=== PATIENT | male | born 1960 | race African-American/Black ===

== ENCOUNTER 2018-06-21 05:53 | Inpatient (IN) | payer OTHER ==
[2018-06-20 13:57] LABS: BASOPHILS % 0.5 % (0.0-1.0); EOSINOPHILS # (AUTO) 0.1 (0.0-0.4); EOSINOPHILS % 2.2 % (0.0-6.0); HEMATOCRIT 43.2 % (38.2-49.6); HEMOGLOBIN 13.4 g/dL (14.0-18.0); LYMPHOCYTES # (AUTO) 1.8 (1.0-3.2); LYMPHOCYTES % 29.4 % (18.0-39.1); MEAN CORPUSCULAR HEMOGLOBIN 20.1 pg (28-32); MEAN CORPUSCULAR VOLUME 64.9 fL (81-99); MONOCYTES # (AUTO) 0.4 (0.2-0.8); MONOCYTES % 7.1 % (4.4-11.3); NEUTROPHILS # (AUTO) 3.6 (2.1-6.9); NEUTROPHILS % 60.5 % (38.7-80.0); PLATELET COUNT 242 x10e3/uL (140-360); RED BLOOD COUNT 6.66 x10e6/uL (4.3-5.7)
[2018-06-20 14:12] LABS: ANION GAP 15.1 mmol/L (8-16); BLOOD UREA NITROGEN 16 mg/dL (7-26); BUN/CREATININE RATIO 18 (6-25); CALCIUM 9.1 mg/dL (8.4-10.2); CARBON DIOXIDE 22 mmol/L (22-29); CHLORIDE 106 mmol/L (98-107); EST GLOMERULAR FILTRATION RATE > 60 ML/MIN (60-); GLUCOSE 188 mg/dL (74-118); POTASSIUM 4.1 mmol/L (3.5-5.1); SODIUM 139 mmol/L (136-145)
[~2018-06-21] VITALS: Ht 188 cm; Wt 118.0 kg
[~2018-06-21 05:53] MED LIST: ASA81 MG PO; ATORVASTATIN CA20 MG PO; FLOMAX0.4 MG PO; GABAPENTIN100 MG PO; GLIPIZIDE5 MG PO; METFORMIN HCL500 MG PO; TRAMADOL HCL50 MG PO; VIT D3 PO; Z ALPRAZOLAM PO; Z.0.OMEPRAZOLE20 MG PO; [UNRECOGNIZED DRUG - OTHER] PO
[2018-06-21] MEDS ORDERED: CEFTRIAXONE SOD 1 GM/NS 50 ML 50 ML IV ONE (06:19)
[2018-06-21] MEDS ORDERED: GENTAMICIN 80MG/NS 100 ML 200 ML IV ONE (06:20)
[2018-06-21] MEDS ORDERED: BELLADONNA/OPIUM 30 MG SUPP RC ONE (09:49)
[2018-06-21] MEDS ORDERED: IOPAMIDOL 610MG/1ML 300 MG/ML VIAL IV ONE (09:49)
[2018-06-21] MEDS ORDERED: FENTANYL CITRATE/PF 100MCG/2 ML INJ ONE ×2 (11:44→14:45)
[2018-06-21] MEDS ORDERED: INSULIN REGULAR, HUMAN 100 UNIT/1 ML 3ML VIAL ONE (11:54)
[2018-06-21] MEDS ORDERED: HYDROMORPHONE 2MG/ML 2 MG/ML ML ONE (12:09)
[2018-06-21] MEDS ORDERED: MIDAZOLAM HCL 2 MG/2 ML VIAL ONE (14:45)
[2018-06-21] MEDS ORDERED: PROPOFOL IV EMULSION 10 MG/ML 20 ML VIAL ONE (15:01)
[2018-06-21] MEDS ORDERED: LIDOCAINE HCL 2% LOCAL INJ 5 ML SDV VIAL INJ ONE (15:01)
[2018-06-21] MEDS ORDERED: DEXAMETHASONE SOD PHOS INJ 4 MG/ML VIAL ONE (15:01)
[2018-06-21] MEDS ORDERED: FUROSEMIDE INJ 10 MG/ML 4 ML VIAL ONE (15:01)
[2018-06-21] MEDS ORDERED: SEVOFLURANE INHAL SOLN 250 ML PEN BTL ONE (15:01)
[2018-06-21] MEDS ORDERED: ONDANSETRON HCL INJ 2MG/ML 2ML 2 MG/ML VIAL ONE (15:01)
--- NOTE | 2018-06-21 15:13 | NUR ---
Patient admitted to unit from PACU. Patient is post op TURP. Patient has a rodriguez catheter with CBI infusing. Urine noted to be pink tinged. Lung rao clear to auscultation. Bowel sounds present x4 but hypoactive. No edema noted. Patient ambulated to the bathroom with assistance. Right hand IV in place with IV fluids infusing. No c/o pain at this time.
[2018-06-21 15:44] VITALS: BP 116/78
[2018-06-21] MEDS ORDERED: BELLADONNA/OPIUM 30 MG SUPP RC PRN (15:45)
[2018-06-21 15:49] VITALS: BP 116/78
[2018-06-21 16:10] VITALS: BP 116/78
[2018-06-21] MEDS: METFORMIN HCL 500 MG TAB PO SCH (16:50)
[2018-06-21] MEDS: GLIPIZIDE 5 MG TAB PO SCH (16:50)
[2018-06-21] MEDS: ONDANSETRON HCL INJ 2MG/ML 2ML 2 MG/ML VIAL IV PRN ×2 (17:12→20:37)
--- NOTE | 2018-06-21 19:10 | NUR ---
REPORT TAKEN FROM AM RN.NO PAIN VOICED.AMBULATES .CONTD.BLADDER IRRIGATION IS IN PLACE.PINK COLORED URINE DRAINING.FAMILY MEMBER AT BED SIDE.
[2018-06-21 19:51] VITALS: BP 132/85
[2018-06-21 20:30] VITALS: BP 132/85
[2018-06-21] MEDS: PHENAZOPYRIDINE HCL 100 MG TAB PO SCH (20:48)
[2018-06-21] MEDS: TAMSULOSIN HCL 0.4 MG CAP PO SCH (20:48)
[2018-06-21] MEDS: ATORVASTATIN 40 MG TAB PO SCH (20:48)
[2018-06-21] MEDS: GABAPENTIN 100 MG CAP PO SCH (20:48)
[2018-06-21] MEDS ORDERED: ATORVASTATIN 20 MG TAB PO SCH (21:00)
--- NOTE | 2018-06-21 21:00 | NUR ---
ASSESSMENT DONE.NO RESP.DISTRESS.PINK COLORED URINE DRAINING.BED LOCKED AND IN LOWEST POSITION.PHONE AND CALL LIGHT WITHIN REACH.INSTRUCTED TO CALL FOR ASSISTANCE NEEDED.FAMILY MEMBER AT BED SIDE.
[2018-06-21] MEDS: ACETAMINOPHEN/CODEINE 300MG - 30MG TAB PO PRN (21:51)
--- NOTE | 2018-06-21 22:42 | NUR ---
Ass Addendum: 06/21/18 at 2243 by Ava Wing RN error
[2018-06-22] VITALS (8 sets, daily range): BP systolic 108–129; BP diastolic 64–90
[2018-06-22] MEDS: ACETAMINOPHEN/CODEINE 300MG - 30MG TAB PO PRN (04:26)
[2018-06-22 05:02] LABS: BASOPHILS % 0.1 % (0.0-1.0); EOSINOPHILS % 0.2 % (0.0-6.0); HEMATOCRIT 45.8 % (38.2-49.6); HEMOGLOBIN 14.1 g/dL (14.0-18.0); LYMPHOCYTES # (AUTO) 1.5 (1.0-3.2); LYMPHOCYTES % 14.8 % (18.0-39.1); MEAN CORPUSCULAR HEMOGLOBIN 19.6 pg (28-32); MEAN CORPUSCULAR HGB CONC 30.8 g/dL (31-35); MEAN CORPUSCULAR VOLUME 63.6 fL (81-99); MONOCYTES # (AUTO) 0.9 (0.2-0.8); MONOCYTES % 8.6 % (4.4-11.3); NEUTROPHILS # (AUTO) 7.6 (2.1-6.9); NEUTROPHILS % 75.8 % (38.7-80.0); PLATELET COUNT 232 x10e3/uL (140-360); RED CELL DISTRIBUTION WIDTH 20.5 % (11.7-14.4)
[2018-06-22 05:18] LABS: ANION GAP 16.8 mmol/L (8-16); BLOOD UREA NITROGEN 16 mg/dL (7-26); BUN/CREATININE RATIO 16 (6-25); CALCIUM 8.9 mg/dL (8.4-10.2); CARBON DIOXIDE 25 mmol/L (22-29); CHLORIDE 99 mmol/L (98-107); CREATININE, SERUM 0.99 mg/dL (0.72-1.25); EST GLOMERULAR FILTRATION RATE > 60 ML/MIN (60-); GLUCOSE 163 mg/dL (74-118); POTASSIUM 3.8 mmol/L (3.5-5.1); SODIUM 137 mmol/L (136-145)
--- NOTE | 2018-06-22 06:45 | NUR ---
Ambulated in the [address].pain medication given.report given to the oncoming rn.walking rounds done.stable condition.
--- NOTE | 2018-06-22 07:09 | NUR ---
Rcvd patient in report this am. Patient is asleep in bed at this time. No s/s of distress noted
[2018-06-22 08:04] LABS: ANISOCYTOSIS SLIGHT; RBC MORPHOLOGY COMMENT NORMAL
[2018-06-22 08:05] LABS: PLATELET ESTIMATE ADEQUATE; PLATELET MORPHOLOGY COMMENT NORMAL
[2018-06-22] MEDS: OLMESARTAN 20 MG TAB PO SCH (08:06)
[2018-06-22] MEDS: GLIPIZIDE 5 MG TAB PO SCH ×2 (08:06→17:18)
[2018-06-22] MEDS: PHENAZOPYRIDINE HCL 100 MG TAB PO SCH ×3 (08:06→21:35)
[2018-06-22] MEDS: GABAPENTIN 100 MG CAP PO SCH ×3 (08:06→21:35)
[2018-06-22] MEDS: CEFTRIAXONE SOD 1 GM/NS 50 ML 50 ML IV SCH (08:06)
[2018-06-22] MEDS: AMLODIPINE BESYLATE 5 MG TAB PO SCH (08:06)
[2018-06-22] MEDS: METFORMIN HCL 500 MG TAB PO SCH ×2 (08:06→17:18)
[2018-06-22] MEDS ORDERED: NON-FORMULARY MEDICATION (Amlodipine Bes/Olmesartan Med (Azor 5-20 Mg Tablet) 1 TAB) PO SCH (09:00)
--- NOTE | 2018-06-22 09:30 | NUR ---
Patient is AAOx3. Patient lung rao clear to auscultation. Bowel sounds present x4. Patient is passing gas. No edema noted. Dubois remains in place and CBI infusing. Slight hematuria noted with orange color as well. No c/o pain. Patient ambulates on his own.
--- NOTE | 2018-06-22 15:17 | NUR ---
Nutrition Screen Note RD Recommendation for Physician: -Continue ADA diet as ordered Plan of Care: RD following, monitoring for tolerance and adequacy Nutrition reason for involvement: Nutrition risk trigger MST Primary Diagnose(s): prostatism PMH: No H&P in chart Ht: 74in Wt: 248lb BMI: 31.8kg/m2 IBW: 190lb RD Assessment: (06/22) Chart reviewed. Labs and meds reviewed. 57 yo M, who is admitted for prostatism s/p TURP. POD 1. 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 Pt denied chewing/swallowing problems and nausea/vomiting. Pt complained of some abdominal bloating, which he contributed to gas. No abdominal pain noted. RN recorded 50-100% meal intake. LBM 06/22. Will cont to monitor. Please consult as needed. Current Diet: ADA diet Malnutrition Evaluation (06/22/18) The patient does not meet criteria for a specified degree of malnutrition at this time. Will re-evaluate at follow-up as appropriate. Diet Education Needs Assessment: Diet education not indicated. Nutrition Care Level: low Signed: Margaret Ribera, MS, RD, LD
--- NOTE | 2018-06-22 20:10 | NUR ---
Assessment done.no pain voiced.ambulates .passing gas.cont.bladder irrigation infusing.orange colored urine draining.family member at bed side.keep monitor the pt.bed locked an din lowest position.phone and call light within reach.instructed to call for asistance as needed.
[2018-06-22] MEDS: TAMSULOSIN HCL 0.4 MG CAP PO SCH (21:00)
[2018-06-22] MEDS: ATORVASTATIN 40 MG TAB PO SCH (21:35)
[2018-06-23 00:18] VITALS: BP 122/77
[2018-06-23 04:00] VITALS: BP 127/71
[2018-06-23 05:08] LABS: BASOPHILS % 0.3 % (0.0-1.0); EOSINOPHILS # (AUTO) 0.1 (0.0-0.4); EOSINOPHILS % 1.1 % (0.0-6.0); HEMATOCRIT 43.3 % (38.2-49.6); HEMOGLOBIN 13.9 g/dL (14.0-18.0); LYMPHOCYTES # (AUTO) 1.8 (1.0-3.2); LYMPHOCYTES % 23.6 % (18.0-39.1); MEAN CORPUSCULAR HEMOGLOBIN 20.1 pg (28-32); MEAN CORPUSCULAR HGB CONC 32.1 g/dL (31-35); MEAN CORPUSCULAR VOLUME 62.5 fL (81-99); MONOCYTES # (AUTO) 0.7 (0.2-0.8); MONOCYTES % 9.1 % (4.4-11.3); NEUTROPHILS # (AUTO) 4.9 (2.1-6.9); NEUTROPHILS % 65.4 % (38.7-80.0); PLATELET COUNT 234 x10e3/uL (140-360); RED BLOOD COUNT 6.93 x10e6/uL (4.3-5.7); RED CELL DISTRIBUTION WIDTH 20.3 % (11.7-14.4)
[2018-06-23 05:26] LABS: ANION GAP 15.9 mmol/L (8-16); BLOOD UREA NITROGEN 15 mg/dL (7-26); BUN/CREATININE RATIO 15 (6-25); CALCIUM 8.8 mg/dL (8.4-10.2); CARBON DIOXIDE 25 mmol/L (22-29); CHLORIDE 98 mmol/L (98-107); EST GLOMERULAR FILTRATION RATE > 60 ML/MIN (60-); GLUCOSE 217 mg/dL (74-118); POTASSIUM 3.9 mmol/L (3.5-5.1); SODIUM 135 mmol/L (136-145)
--- NOTE | 2018-06-23 06:50 | NUR ---
REPORT GIVEN TO THE ONCOMING RN.WALKING ROUNDS DONE.STABLE CONDITION.
--- NOTE | 2018-06-23 07:21 | NUR ---
Rounds by urologist and orders in place to d/c rodriguez and complete serial urine, patient in bed during rounds and denies pains, call light within reach, on CBI at the [facility], s/p TURP, some hematuria, will monitor.
[2018-06-23] MEDS: METFORMIN HCL 500 MG TAB PO SCH ×2 (08:00→16:20)
[2018-06-23 08:46] LABS: HOWELL-JOLLY BODIES FEW; PLATELET ESTIMATE ADEQUATE; PLATELET MORPHOLOGY COMMENT FEW LARGE; RBC MORPHOLOGY COMMENT ABNORMAL
[2018-06-23 08:47] LABS: ANISOCYTOSIS SLIGHT; ELLIPTOCYTE, RBC SLIGHT
--- NOTE | 2018-06-23 09:05 | NUR ---
Patient alert and responsive, VSS and does not relate to pain, nausea, no vomiting, Dubois cath removed at this time with some hematuria, Serial urine will start upon first urination as DTV in 4-6 hours. Will monitor.
[2018-06-23] MEDS: GLIPIZIDE 5 MG TAB PO SCH ×2 (09:07→16:20)
[2018-06-23] MEDS: PHENAZOPYRIDINE HCL 100 MG TAB PO SCH ×3 (09:07→20:39)
[2018-06-23] MEDS: AMLODIPINE BESYLATE 5 MG TAB PO SCH (09:07)
[2018-06-23] MEDS: GABAPENTIN 100 MG CAP PO SCH ×3 (09:07→20:39)
[2018-06-23] MEDS: CEFTRIAXONE SOD 1 GM/NS 50 ML 50 ML IV SCH (09:07)
[2018-06-23] MEDS: OLMESARTAN 20 MG TAB PO SCH (09:08)
[2018-06-23 09:39] VITALS: BP 120/70
--- NOTE | 2018-06-23 11:24 | NUR ---
Patient OOB and ambulating, voided post removal of Dubois and noted as hematuria, serial urine started, will monitor.
[2018-06-23 12:17] VITALS: BP 110/69
[2018-06-23 16:50] VITALS: BP 129/79
--- NOTE | 2018-06-23 18:18 | NUR ---
Patient alert and responsive, call to Dr. Livingston and orders for Restoral PRN for insomnia.
[2018-06-23] MEDS ORDERED: TEMAZEPAM 15 MG CAP PO PRN (18:30)
--- NOTE | 2018-06-23 18:44 | NUR ---
Call from Dr. Castellon and orders to start fluids NS @ 125cc/hour
[2018-06-23] MEDS: SODIUM CHLORIDE 0.9% 1000ML 1,000 ML IV SCH (19:05)
--- NOTE | 2018-06-23 19:15 | NUR ---
PATIENT RECEIVED. PATIENT IS RESTING IN BED, AAOX3. RESP EVEN AND UNLABORED. NO ACUTE DISTRESS NOTED. PATIENT DENIES OF ANY PAIN OR DISCOMFORT. FAMILY AT BED SIDE. CALL LIGHT WITHIN REACH. INSTRUCT TO CALL FOR ASSISTANCE. BED LOW/LOCKED. CONTINUE TO MONITOR CLOSELY
[2018-06-23 20:00] VITALS: BP 137/79
[2018-06-23] MEDS: ATORVASTATIN 40 MG TAB PO SCH (20:39)
[2018-06-23] MEDS: TAMSULOSIN HCL 0.4 MG CAP PO SCH (20:39)
[2018-06-24] VITALS (7 sets, daily range): BP systolic 101–137; BP diastolic 59–79
[2018-06-24] MEDS: SODIUM CHLORIDE 0.9% 1000ML 1,000 ML IV SCH ×3 (03:37→18:45)
[2018-06-24] MEDS: PHENAZOPYRIDINE HCL 100 MG TAB PO SCH ×4 (09:18→20:34)
[2018-06-24] MEDS: CEFTRIAXONE SOD 1 GM/NS 50 ML 50 ML IV SCH (09:18)
[2018-06-24] MEDS: GABAPENTIN 100 MG CAP PO SCH ×3 (09:19→20:13)
[2018-06-24] MEDS: OLMESARTAN 20 MG TAB PO SCH (09:19)
[2018-06-24] MEDS: AMLODIPINE BESYLATE 5 MG TAB PO SCH (09:19)
[2018-06-24] MEDS: METFORMIN HCL 500 MG TAB PO SCH ×2 (09:22→17:03)
[2018-06-24] MEDS: GLIPIZIDE 5 MG TAB PO SCH ×2 (09:22→17:03)
--- NOTE | 2018-06-24 13:12 | Progress Note ---
DATE: MEDICINE PROGRESS NOTE SUBJECTIVE: I am covering for Dr. Livingston. Patient is doing well today with no complaints. He still has some bloody hematuria. He underwent a TURP procedure according to the nurse. OBJECTIVE VITAL SIGNS: Temperature is 97.5, pulse 87, respiratory rate is 20, blood pressure 112/78, pulse ox is 96% on room air. GENERAL: Not in acute distress. Alert and oriented x3. Cooperative on examination. HEENT: Head is normocephalic and atraumatic. Eyes: Pupils equal, round and reactive to light bilaterally. Extraocular movements intact bilaterally. Throat with no evidence of any erythema or exudates in the posterior pharynx. Has poor dentition. NECK: Supple. Good range of motion. PULMONARY: Clear to auscultation bilaterally. No wheezing. No rales. No rhonchi. No crackles appreciated. CARDIOVASCULAR: Positive S1 and S2. No murmurs, rubs, or gallops appreciated. ABDOMEN: Soft, nondistended, and nontender to palpation. Bowel sounds present. MUSCULOSKELETAL: Strength is 5/5 throughout. No evidence of any musculoskeletal deficit on examination. No weakness appreciated. NEUROLOGICAL: Cranial nerves II-XII are grossly intact. No evidence of any neurological deficits on exam. SKIN: Intact. Warm to touch. Good cap refill. PSYCHIATRIC: Normal affect and mood. EXTREMITIES: No edema. Good range of motion throughout. MICROBIOLOGY: None. IMAGING STUDIES: None. IMPRESSION 1. Status post cystoscopy with bilateral retrograde pyelograms, status post transurethral resection of prostate procedure due to benign prostatic hypertrophy. 2. Hematuria. PLAN: At this time, patient continues to have bloody urine. Hemoglobin is stable at 13.9. We are going to repeat labs in the morning. Discussed case with urology, recommends patient staying an additional night to monitor for clearance of his urine. At this time, we will continue with same plan of care and monitor closely. Job#: [id number]
--- NOTE | 2018-06-24 17:32 | Operative Report ---
DATE OF PROCEDURE: June 21, 2018 PREOPERATIVE DIAGNOSES 1. Obstructive benign prostatic hypertrophy. 2. Urinary tract infections. POSTOPERATIVE DIAGNOSES 1. Obstructive benign prostatic hypertrophy. 2. Urinary tract infections. OPERATIONS PERFORMED 1. Cystourethroscopy with bilateral ureteral catheterization and retrograde ureteropyelography (separate procedure performed for the urinary tract infections). 2. Interpretation of retrograde ureteropyelography. 3. Supervision of fluoroscopy, no radiologist present. 4. Cystourethroscopy with transurethral resection of the prostate utilizing the PlasmaButton electrode. ANESTHESIA: General. COMPLICATIONS: None. CLINICAL SUMMARY: Maciej Man is a 57-year-old man with a history of urinary retention. He had prior prostate biopsies in 2003, which were negative for cancer. He has a history of urinary tract infections. He elected to proceed with surgery today as planned. He is aware of the risks of bleeding, infection, injury to adjacent structures, need for additional procedures, and elected to proceed. OPERATIVE PROCEDURE IN DETAIL: Informed consent was verified. Maciej Man was properly identified, taken to the operating room, placed on the cystoscopy table in the supine position. Anesthesia was uneventfully begun. The patient was then carefully and gently repositioned in the dorsal lithotomy position with all pressure points well padded. His genitalia were prepared and draped in the usual sterile fashion. A 22.5-[place] cystoscope sheath with the visual obturator in place was atraumatically inserted into the patient's urethra. It was guided down the unremarkable urethra through the normal sphincteric region, through the prostate bed, which was significant for trilobar prostatic hypertrophy with visually obstructing kissing lateral lobes and prominent intravesical median lobe. We entered the patient's bladder where panendoscopy revealed no suspicious mucosal lesions, no tumors, no stones, and no diverticula. Trabeculations were noted and normal ureteral orifices were identified. An 8-[place] catheter was used to cannulate each ureter and retrograde ureteral pyelograms were performed. INTERPRETATION OF RETROGRADE URETEROPYELOGRAPHY: Contrast was instilled in a retrograde fashion bilaterally. There were no tumors, no stones, and no diverticula. Unobstructed drainage was observed bilaterally fluoroscopically. Mild ureteral tortuosity was noted around the iliac vessels. We atraumatically inserted the resectoscope sheath and utilized the PlasmaButton electrode. We first vaporized the median lobe with taking care to avoid injuring the ureteral orifices. Once the median lobe was completely eliminated, we worked on both lateral lobes, found the bladder neck too, but never passed the verumontanum and down the surgical capsule. Pinpoint electrocautery was utilized to achieve hemostasis. Debris was evacuated. Perfect hemostasis was verified yet again. The resectoscope was withdrawn. A continuous flow irrigation Dubois was placed. A belladonna and opium suppository was placed revealing a large prostate over 40 grams in size, smooth, non-fluctuant without any nodules. The patient was then uneventfully reversed from anesthesia and taken to recovery room in stable condition. There were no complications during the procedure. The patient tolerated the procedure well. Explicit postop instructions were given and we will follow the patient up on a long-term basis. Job#: [id number] TONE
--- NOTE | 2018-06-24 20:00 | NUR ---
Received change of shift report from AM nurse. Walking rounds completed.
[2018-06-24] MEDS: PANTOPRAZOLE SOD 40 MG TABEC PO SCH (20:01)
[2018-06-24] MEDS: TAMSULOSIN HCL 0.4 MG CAP PO SCH (20:13)
[2018-06-24] MEDS: ATORVASTATIN 40 MG TAB PO SCH (20:13)
--- NOTE | 2018-06-24 23:00 | NUR ---
Patient up walking in halls with no difficulty noted. Refused IV and serial urine states 'I am going home". Patient also refused puridium. continue monitor for changes in patient condition.
[2018-06-25] VITALS: BP 136/76
[2018-06-25] MEDS: SODIUM CHLORIDE 0.9% 1000ML 1,000 ML IV SCH ×2 (02:45→09:23)
[2018-06-25 04:00] VITALS: BP 117/79
--- NOTE | 2018-06-25 05:00 | NUR ---
Patient up in shower taking a bath. No noted difficulty noted.
[2018-06-25 06:07] LABS: BASOPHILS % 0.5 % (0.0-1.0); EOSINOPHILS # (AUTO) 0.2 (0.0-0.4); EOSINOPHILS % 2.5 % (0.0-6.0); HEMOGLOBIN 12.3 g/dL (14.0-18.0); LYMPHOCYTES # (AUTO) 2.2 (1.0-3.2); LYMPHOCYTES % 34.6 % (18.0-39.1); MEAN CORPUSCULAR HEMOGLOBIN 20.6 pg (28-32); MEAN CORPUSCULAR HGB CONC 33.2 g/dL (31-35); MEAN CORPUSCULAR VOLUME 62.1 fL (81-99); MONOCYTES # (AUTO) 0.5 (0.2-0.8); MONOCYTES % 7.9 % (4.4-11.3); NEUTROPHILS # (AUTO) 3.4 (2.1-6.9); NEUTROPHILS % 54.2 % (38.7-80.0); PLATELET COUNT 205 x10e3/uL (140-360); RED BLOOD COUNT 5.96 x10e6/uL (4.3-5.7); RED CELL DISTRIBUTION WIDTH 19.9 % (11.7-14.4)
[2018-06-25 06:29] LABS: ANION GAP 15.3 mmol/L (8-16); BLOOD UREA NITROGEN 16 mg/dL (7-26); BUN/CREATININE RATIO 19 (6-25); CALCIUM 8.9 mg/dL (8.4-10.2); CARBON DIOXIDE 24 mmol/L (22-29); CHLORIDE 105 mmol/L (98-107); CREATININE, SERUM 0.86 mg/dL (0.72-1.25); EST GLOMERULAR FILTRATION RATE > 60 ML/MIN (60-); GLUCOSE 178 mg/dL (74-118); POTASSIUM 4.3 mmol/L (3.5-5.1); SODIUM 140 mmol/L (136-145)
--- NOTE | 2018-06-25 07:02 | NUR ---
Received patient mid fowlers position, side rails upx2, call light within reach. AAOx4 to time, person, place, situation. Respirations even and unlabored. Denies any pain. Instructed patient to use call light for assistance. Voiced understanding.
[2018-06-25 08:00] VITALS: BP 131/81
[2018-06-25 08:35] VITALS: BP 131/81
[2018-06-25] MEDS: METFORMIN HCL 500 MG TAB PO SCH (08:52)
[2018-06-25] MEDS: CEFTRIAXONE SOD 1 GM/NS 50 ML 50 ML IV SCH (08:52)
[2018-06-25] MEDS: GLIPIZIDE 5 MG TAB PO SCH (08:52)
[2018-06-25] MEDS: GABAPENTIN 100 MG CAP PO SCH (08:53)
[2018-06-25] MEDS: OLMESARTAN 20 MG TAB PO SCH (08:53)
[2018-06-25] MEDS: AMLODIPINE BESYLATE 5 MG TAB PO SCH (08:53)
[2018-06-25] MEDS: PANTOPRAZOLE SOD 40 MG TABEC PO SCH (08:53)
[2018-06-25] MEDS: PHENAZOPYRIDINE HCL 100 MG TAB PO SCH (09:00)
[2018-06-25] MEDS ORDERED: TYLENOL WITH C1 EACH PO (11:35)
[2018-06-25] MEDS ORDERED: COLACE100 MG PO (11:35)
[2018-06-25] MEDS ORDERED: CIPRO500 MG PO (11:36)
--- NOTE | 2018-06-25 11:54 | Discharge Summary ---
FINAL DISCHARGE DIAGNOSES 1. Status post cystourethrogram with bilateral ureteral catheterization and retrograde ureteropyelography with transurethral resection of the prostate. 2. Hematuria, resolved. 3. Benign prostatic hypertrophy. CONSULTANTS: Urology. VITAL SIGNS: Temperature is 98.1, pulse 76, respiratory rate is 20, blood pressure 131/81, pulse ox is 95% on room air. LAB FINDINGS: Showed white count 6.3, hemoglobin 12.3, hematocrit 37, platelets of 205. Chemistry; sodium 140, potassium 4.3, chloride 105, bicarb 23, anion gap of 15, BUN 16, creatinine 0.86, glucose is 178, calcium is 8.9. MICROBIOLOGY: None. IMAGING STUDIES: None. HOSPITAL COURSE: This is a 57-year-old male with known BPH who comes in for an elective procedure that was arranged by urology. Patient underwent a cystourethroscopy with bilateral ureteral catheterization and retrograde ureteropyelography with cystourethroscopy with transurethral resection of the prostate utilizing plasma, blood, and electrode. Patient had a TURP performed on June 21, 2018 by urology. Patient stayed here for several days due to the fact that he had hematuria. His urine eventually cleared up to normal with no more hematuria seen. The patient did well postprocedurally with no complaints. The patient will be discharged on pain control as well as Colace and Cipro. Patient was cleared by urology for discharge home. On discharge, vital signs stable, labs remained stable. Patient was seen, evaluated, and examined thoroughly on the day of discharge with no other complaints. Patient verbalized understanding and agreed with plan of care to follow up as an outpatient with the primary care physician in 1 week and urologist in 2 weeks time. MEDICATIONS: See med-reconciliation form. DISPOSITION: Home. CONDITION: Stable. DIET: Heart-healthy. In the event of any worsening symptoms, the patient was advised to come back to the ED for further evaluation. Discharge summary took greater than 35 minutes. ANDRY DAMICO MD Job#: [id number] CELSA
--- NOTE | 2018-06-25 13:01 | NUR ---
Right hand IV discontinued. No signs of infiltration noted. 2x2 gauze and tape placed. Taken by PCT via wheelchair to personal car. AAOX4 to time, person,place, situation. Respirations even and unlabored. All personal belongings, rx, and discharge instructions taken with patient
== END 2018-06-25 13:01 | disposition home or self-care (01) | DRG 714 ==
LOC: OR 05:53 → PACU V 14:42 → MED/SURG 15:15
PROVIDERS: ADMIT Internal Medicine; ATTEND Internal Medicine
PROC: BT141ZZ Fluoroscopy of Kidneys, Ureters and Bladder using Low Osmolar Contrast (ICD-10-PCS; 2018-06-21)
PROC: 0T788ZZ Dilation of Bilateral Ureters, Via Natural or Artificial Opening Endoscopic (ICD-10-PCS; principal; 2018-06-21 08:30)
PROC: 0VT08ZZ Resection of Prostate, Via Natural or Artificial Opening Endoscopic (ICD-10-PCS; 2018-06-21 08:30)
DX: N40.1 Benign prostatic hyperplasia with lower urinary tract symptoms (principal); R31.9 Hematuria, unspecified; E78.5 Hyperlipidemia, unspecified; K21.9 Gastro-esophageal reflux disease without esophagitis; N39.41 Urge incontinence; Z87.440 Personal history of urinary (tract) infections; N39.498 Other specified urinary incontinence; R33.8 Other retention of urine; I10 Essential (primary) hypertension; E11.40 Type 2 diabetes mellitus with diabetic neuropathy, unspecified
CPT/HCPCS: 36415; 74420; 80048; 82948; 85025; 93005; J0696; J1100; J1580; J1940; J2001; J2250; J2405; J7030

== ENCOUNTER 2020-04-01 18:42 | Observation (INO) | payer OTHER ==
[~2020-04-01] VITALS: Ht 188 cm; Wt 116.1 kg
[~2020-04-01 18:42] MED LIST changes: +CIPRO500 MG PO; +COLACE100 MG PO; +TYLENOL WITH C1 EACH PO
[2020-04-01] MEDS ORDERED: ASPIRIN 81 MG CHEW TAB PO NR (20:00)
[2020-04-01] MEDS: NITROGLYCERIN 2% OINT 1 GM PKT TOP SCH (20:33)
[2020-04-01] MEDS ORDERED: ASPIRIN 81 MG CHEW TAB ONE (20:35)
[2020-04-01] MEDS ORDERED: NITROGLYCERIN 2% OINT 1 GM PKT ONE (20:35)
[2020-04-01] MEDS ORDERED: ONDANSETRON HCL INJ 2MG/ML 2ML 2 MG/ML VIAL IV PRN (21:30)
[2020-04-01] MEDS ORDERED: SODIUM CHLORIDE FLUSH 10 ML SYR INJ PRN (21:30)
[2020-04-01] MEDS ORDERED: ASPIRIN 81 MG CHEW TAB PO ONE (21:30)
[2020-04-01 23:40] VITALS: BP 140/90
[2020-04-02] MEDS ORDERED: ASPIRIN CHEW81 MG PO (02:57)
[2020-04-02] MEDS ORDERED: PIOGLITAZONE30 MG PO (02:57)
[2020-04-02] MEDS ORDERED: LOTREL 10-20 M1 EACH PO (02:57)
[2020-04-02 03:09] LABS: CREATINE KINASE MB 4.8 ng/mL (0-5.0)
[2020-04-02 04:00] VITALS: BP 132/88
[2020-04-02 04:59] LABS: BASOPHILS % 0.6 % (0.0-1.0); EOSINOPHILS # (AUTO) 0.2 (0.0-0.4); EOSINOPHILS % 3.8 % (0.0-6.0); HEMATOCRIT 40.3 % (38.2-49.6); HEMOGLOBIN 12.4 g/dL (14.0-18.0); LYMPHOCYTES # (AUTO) 1.9 (1.0-3.2); LYMPHOCYTES % 36.6 % (18.0-39.1); MEAN CORPUSCULAR HEMOGLOBIN 19.7 pg (28-32); MEAN CORPUSCULAR HGB CONC 30.8 g/dL (31-35); MEAN CORPUSCULAR VOLUME 64.2 fL (81-99); MONOCYTES # (AUTO) 0.5 (0.2-0.8); NEUTROPHILS # (AUTO) 2.6 (2.1-6.9); NEUTROPHILS % 49.6 % (38.7-80.0); PLATELET COUNT 246 x10e3/uL (140-360); RED BLOOD COUNT 6.28 x10e6/uL (4.3-5.7); RED CELL DISTRIBUTION WIDTH 20.2 % (11.7-14.4)
[2020-04-02 05:17] LABS: ANION GAP 9.8 mmol/L (8-16); BLOOD UREA NITROGEN 18 mg/dL (7-26); BUN/CREATININE RATIO 23 (6-25); CALCIUM 8.7 mg/dL (8.4-10.2); CARBON DIOXIDE 27 mmol/L (22-29); CHLORIDE 107 mmol/L (98-107); CHOLESTEROL 119 MD/DL (0-199); CREATININE, SERUM 0.79 mg/dL (0.72-1.25); EST GLOMERULAR FILTRATION RATE > 60 ML/MIN (60-); GLUCOSE 125 mg/dL (74-118); HDL CHOLESTEROL 40 MG/DL (40-60); LDL CHOLESTEROL 64 MG/DL (60-130); POTASSIUM 3.8 mmol/L (3.5-5.1); SODIUM 140 mmol/L (136-145); TRIGLYCERIDES 73 MG/DL (0-149)
[2020-04-02] MEDS: NITROGLYCERIN 2% OINT 1 GM PKT TOP SCH (05:43)
[2020-04-02 07:53] VITALS: BP 132/88
[2020-04-02 08:15] VITALS: BP 132/88
[2020-04-02] MEDS ORDERED: ASPIRIN 81 MG CHEW TAB PO SCH (09:00)
[2020-04-02] MEDS ORDERED: DEXTROSE 50% SYRINGE 50 ML IV PRN (09:00)
[2020-04-02] MEDS ORDERED: ACETAMINOPHEN 325 MG TAB PO PRN (09:00)
[2020-04-02] MEDS: GLIPIZIDE 5 MG TAB PO SCH ×2 (10:21→17:00)
[2020-04-02] MEDS: GABAPENTIN 100 MG CAP PO SCH ×2 (10:22→17:37)
[2020-04-02] MEDS ORDERED: AMLODIPINE BESYLATE 10 MG TAB PO SCH (10:30)
[2020-04-02] MEDS ORDERED: BENAZEPRIL HCL 10 MG TAB PO SCH (10:30)
[2020-04-02] MEDS ORDERED: MECLIZINE HCL 12.5 MG TAB PO ONE (10:45)
[2020-04-02 11:15] VITALS: BP 117/85
[2020-04-02] MEDS: INSULIN REGULAR, HUMAN 100 UNIT/1 ML 3ML VIAL SQ SCH ×2 (11:30→16:30)
[2020-04-02] MEDS ORDERED: CLOPIDOGREL BISULFATE 75 MG TAB PO ONE (12:45)
[2020-04-02] MEDS ORDERED: SODIUM CHLORIDE 0.9% 1000ML 1,000 ML SCH (12:45)
[2020-04-02 12:52] LABS: CREATINE KINASE MB 4.4 ng/mL (0-5.0)
[2020-04-02] MEDS ORDERED: LIDOCAINE HCL 2% LOCAL 20 ML VIAL ONE (14:43)
[2020-04-02] MEDS ORDERED: IOPAMIDOL 370 MG/ML 200 ML INFUS..BTL INJ ONE (14:44)
[2020-04-02] MEDS ORDERED: HEPARIN SOD/SOD CHLORIDE 2,000 ML ONE (14:44)
[2020-04-02] MEDS ORDERED: MIDAZOLAM HCL 2 MG/2 ML VIAL ONE ×2 (14:46→15:13)
[2020-04-02] MEDS ORDERED: SODIUM CHLORIDE 0.9% 1000ML 1,000 ML ONE (14:46)
[2020-04-02] MEDS ORDERED: FENTANYL CITRATE/PF 100MCG/2 ML INJ ONE (14:46)
[2020-04-02] MEDS ORDERED: SODIUM CHLORIDE 0.9% 1000ML 500 ML IV SCH (15:45)
[2020-04-02] MEDS ORDERED: SODIUM CHLORIDE 0.9% 1000ML 500 ML IV ONE (16:00)
[2020-04-02 16:02] VITALS: BP 123/84
[2020-04-02] MEDS ORDERED: MECLIZINE HCL12.5 MG PO (18:34)
[2020-04-02] MEDS ORDERED: ATORVASTATIN 40 MG TAB PO SCH (21:00)
[2020-04-03] MEDS ORDERED: CLOPIDOGREL BISULFATE 75 MG TAB PO SCH (09:00)
== END 2020-04-02 19:15 | disposition home or self-care (01) ==
LOC: FSED 19:00 → ERHOLD 21:19 → MED/SURG 23:40
PROVIDERS: ADMIT Internal Medicine; ATTEND Internal Medicine
DX: R07.9 Chest pain, unspecified (principal); R42 Dizziness and giddiness; E11.9 Type 2 diabetes mellitus without complications; E11.42 Type 2 diabetes mellitus with diabetic polyneuropathy; E78.5 Hyperlipidemia, unspecified; I25.10 Atherosclerotic heart disease of native coronary artery without angina pectoris; Z79.84 Long term (current) use of oral hypoglycemic drugs; Z20.828 Contact with and (suspected) exposure to other viral communicable diseases
CPT/HCPCS: 36415; 70450; 71046; 80048 ×2; 80061; 80076; 81003; 82550; 82553 ×2; 82948; 83036; 83880; 84443; 84484 ×2; 85025 ×2; 93005; 93458; 99284; C1766; C1769; G0378 ×2; J2001; J2250; J2405; J3010; J7030; J8597; Q9967; U0002; 99152; 99153

== ENCOUNTER 2020-04-14 14:25 | Emergency (ER) | payer OTHER ==
[~2020-04-14] VITALS: Ht 188 cm; Wt 116.1 kg
[~2020-04-14 14:25] MED LIST changes: +ASPIRIN CHEW81 MG PO; +LOTREL 10-20 M1 EACH PO; +MECLIZINE HCL12.5 MG PO; +PIOGLITAZONE30 MG PO
--- NOTE | 2020-04-14 15:30 | Emergency Department Note ---
History of Present Illnes History of Present Illness Chief Complaint: Chest Pain History of Present Illness This is a 59 year old male Chief Complaint Comment PT STATED HE STARTED HAVING CHEST PAINS LAST NIGHT WITH SOME SOB, PT STATED PAIN COMES AND GOES, PT WAS ADMITTED LAST WEEK TO [facility] WHERE HE WENT EXTENSIVE CARDIAC TESTING INCLUDING A CARDIAC CATH. PT STATED ALL WAS NEGATIVE. NO DISTRESS NOTED IN TRIAGE, VITAL SIGNS STABLE. . Historian: Patient, Family Member Arrival Mode: Car Winding Department Supervisor Required: No Onset (how long ago): day(s) (1) Location: CHEST LEFT Quality: DULL Radiation: Denies non-radiation, Denies back, Denies neck, Denies extremity, Denies abdomen, Denies periumbilical, Denies flank, Denies proximal, Denies distal, Denies other Severity: moderate Onset quality: gradual Duration (how long): day(s) (1) Timing of current episode: intermittent Progression: waxing and waning Chronicity: new Context: Denies recent illness, Denies recent surgery, Denies recent immobilization, Denies recent travel, Denies trauma/injury, Denies new medications, Denies hx of DVT/PE, Denies non-compliance w/ medications, Denies other Relieving factors: none Exacerbating factors: none Associated symptoms: Denies denies other symptoms, Denies confusion, Denies chest pain, Denies cough, Denies diaphoresis, Denies fever/chills, Denies headaches, Denies loss of appetite, Denies malaise, Denies nausea/vomiting, Denies rash, Denies seizure, Denies shortness of breath, Denies syncope, Denies weakness, Denies other Treatments prior to arrival: none Past Medical/Family History Physician Review I have reviewed the patient's past medical and family history. Any updates have been documented here. Past Medical History Recent Fever: No Clinical Suspicion of Infectio: No New/Unexplained Change in Ment: No Past Medical History: Hypertension, Diabetes, CAD, Hyperlipedemia Other Medical History: BPH VERTIGO Past Surgical History: Cholecysctectomy, Appendectomy, Hernia Repair Other Surgery: LEFT ROTATOR CUFF SURG PROSTATE Social History Smoking Cessation: Never Smoker Counseling Performed: No Alcohol Use: Occasional Any Illegal Drug Use: No Other Any Pre-Existing Lines (PICC,: No Review of Systems Review of Systems Constitutional: Reports no symptoms EENTM: Reports no symptoms Cardiovascular: Reports as per HPI, Reports chest pain Respiratory: Reports no symptoms Gastrointestinal: Reports no symptoms Genitourinary: Reports no symptoms Musculoskeletal: Reports no symptoms Integumentary: Reports no symptoms Neurological: Reports no symptoms Psychological: Reports no symptoms Endocrine: Reports no symptoms Hematological/Lymphatic: Reports no symptoms Physical Exam Related Data Allergies: Coded Allergies: No Known Allergies (Unverified , 10/04/11) Triage Vital Signs Vital Signs Date Time Temp Pulse Resp B/P (MAP) Pulse Ox O2 Delivery O2 Flow Rate FiO2 04/14/20 14:30 98.9 98 17 127/91 100 Room Air Vital signs reviewed: Yes Physical Exam CONSTITUTIONAL Constitutional: Present well-developed, Present well-nourished HENT HENT: Present normocephalic, Present atraumatic, Present oropharynx clear/moist, Present nose normal HENT L/R: Present left ext ear normal, Present right ext ear normal; Absent left TM normal, Absent right TM normal, Absent left canal normal, Absent right canal normal, Absent left impacted cerumen, Absent right impacted cerumen, Absent left bulging TM, Absent right bulging TM, Absent other EYES Eyes: Reports PERRL, Reports conjunctivae normal; Denies EOM normal, Denies lids normal, Denies left eye discharge, Denies right eye discharge, Denies scleral icterus, Denies other NECK Neck: Present ROM normal; Absent supple, Absent thyromegaly, Absent tracheal deviation, Absent stridor, Absent JVD, Absent cervical adenopathy, Absent carotid bruit, Absent other PULMONARY Pulmonary: Present effort normal, Present breath sounds normal; Absent respiratory distress, Absent rales, Absent rhonchi, Absent chest tenderness, Absent other CARDIOVASCULAR Cardiovascular: Present regular rhythm, Present heart sounds normal, Present capillary refill normal, Present normal rate; Absent irregular rhythm, Absent intact distal pulses, Absent tachycardia, Absent bradycardia, Absent murmur, Absent gallop, Absent friction rub, Absent palpable pulses, Absent strong pulses, Absent weak pulses, Absent LLE edema, Absent RLE edema, Absent other GASTROINTESTINAL Abdominal: Present soft, Present nontender, Present bowel sounds normal; Absent distension, Absent tender, Absent guarding, Absent mass, Absent rebound, Absent hernia, Absent left CVA tenderness, Absent right CVA tenderness, Absent other GENITOURINARY Genitourinary: Present exam deferred SKIN Skin: Present warm, Present dry; Absent erythema, Absent pale, Absent rash, Absent jaundiced, Absent bruising, Absent lesion, Absent other MUSCULOSKELETAL Musculoskeletal: Present ROM normal NEUROLOGICAL Neurological: Present alert, Present oriented x 3, Present no gross motor or sensory deficits PSYCHOLOGICAL Psychological: Present mood/affect normal, Present judgement normal Results Laboratory Lab results reviewed: Yes Procedures 12 Lead ECG Interpretation ECG Interpretation : Date: Apr 14, 2020 Time: 14:34 Rhythm: sinus rhythm Rate: normal BPM: 98 QRS axis: normal ST segments normal: Yes T waves normal: Yes Clinical Impression: normal ECG Assessment & Plan Medical Decision Making [facility] Assessment & Plan Final Impression: (1) Chest pain (2) Dizziness Depart Disposition: HOME, SELF-CARE Last Vital Signs Date Time Temp Pulse Resp B/P (MAP) Pulse Ox O2 Delivery O2 Flow Rate FiO2 04/14/20 14:30 98.9 98 17 127/91 100 Room Air Home Meds Active Scripts Ondansetron Hcl* (ZOFRAN*) 4 Mg Tablet, 4 MG PO TID, #20 Prov:ALEX STONE MD 04/14/20 Reported Medications Meclizine Hcl (MECLIZINE HCL) 12.5 Mg Tablet, 25 MG PO Q8H PRN for DIZZINESS, TAB 04/02/20 Amlodipine Besylate/Benazepril (LOTREL 10-20 MG CAPSULE) 1 Each Capsule, 1 TAB PO DAILY 04/02/20 Aspirin (ASPIRIN CHEW) 81 Mg Chew, 81 MG PO DAILY, #30 TAB 04/02/20 Pioglitazone Hcl (PIOGLITAZONE) 30 Mg Tablet, MG PO DAILY 04/02/20 Glipizide (GLIPIZIDE) 5 Mg Tablet, 10 MG PO BID, TAB 06/20/18 Gabapentin (GABAPENTIN) 100 Mg Capsule, 100 MG PO TID 06/20/18 [Vit D3] No Conflict Check, 1 TAB PO PER PT 1 TABLET WEEKLY ON Mondays06/20/18 Metformin Hcl (METFORMIN HCL) 500 Mg Tablet, 1000 MG PO BID, #60 TAB 06/20/18 Atorvastatin Calcium (ATORVASTATIN CALCIUM) 20 Mg Tablet, 40 MG PO HS, #30 TAB 06/20/18 ALEX STONE MD Apr 14, 2020 15:30
[2020-04-14] MEDS ORDERED: ZOFRAN4 MG PO (15:31)
[2020-04-14 15:33] VITALS: BP 142/92
--- OUTSIDE RECORDS SUMMARY | 2020-04-14 15:34 | XMS REPORT | Continuity of Care Document ---
Author Author [facility] t Organization [facility] Address [address] [place] [address] Phone Unavailable Care Team Providers Care Teacher Adult Education Name Role Phone MD DOC AMIR PCP Bucky MORATAYA Attphys Unavailable Bucky MORATAYA Admphys Unavailable Payers Payer Name Policy Type Policy Number Effective Date Expiration Date Bucky isaacs Inocencia [id number] 2019 00:00:00 [facility] Problems Condition Name Condition Details Condition Category Status Onset Date Resolution Date Last Treatment Date Treating Clinician Comments Source Chest pain Problem Active [facility] Dizziness Problem Active [facility] Diabetes mellitus Problem Active [facility] Hyperlipidemia Problem Active [facility] Allergies, Adverse Reactions, Alerts Allergy Name Allergy Type Status Severity Reaction(s) Onset Date Inacti ve Date Treating Clinician Comments Source No Known Allergies DA Active U 2019-03-26 00:00:00 [facility] Social History Social Habit Start Date Stop Date Quantity Comments Source Sex Assigned At 1960 00:00:00 1960 00:00:00 Male [facility] Medications Ordered Medication Name Filled Medication Name Start Date Stop Da te Current Medication? Ordering Clinician Indication Dosage Frequency Signature (SIG) Comments Components Source Amlodipine Besylate/Benazepril (Lotrel 10-20 Mg Capsul e) 1 Each CAPSULE Amlodipine Besylate/Benazepril (Lotrel 10-20 Mg Capsule) 1 Each CAPSULE Yes 1 Daily [facility] Aspirin (Aspirin Chew) 81 Mg CHEW Aspirin (Aspirin Chew) 81 Mg CHEW Yes 81 Daily [facility] Atorvastatin Calcium Atorvastatin Calcium Yes 40 Bedtime [facility] Gabapentin Gabapentin Yes 100 Three Times A Day [facility] Glipizide Glipizide Yes 10 Twice A Day [facility] Meclizine Hcl Meclizine Hcl Yes 25 Every 8 Hours as needed for Dizziness [facility] Metformin Hcl Metformin Hcl Yes 1000 Twice A Day [facility] Pioglitazone Hcl (Pioglitazone) 30 Mg TABLET Pioglitaz one Hcl (Pioglitazone) 30 Mg TABLET Yes Daily [facility] Vit D3 Vit D3 Yes 1 [facility] Acetaminophen With Codeine (Tylenol With Codeine #3 Ta blet) 1 Each TABLET Acetaminophen With Codeine (Tylenol With Codeine #3 Tablet) 1 Each TABLET 2020-04-02 00:00:00 No 300 Every 6 Hours as nee ded for Pain [facility] Docusate Sodium (Colace) 100 Mg CAP Docusate Sodium (Colace) 100 Mg CAP 2020-04-02 00:00:00 No 100 Daily [facility] Tamsulosin Hcl (Flomax*) 0.4 Mg CAP Tamsulosin Hcl (Flomax*) 0.4 Mg CAP 2020-04-02 00:00:00 No .4 Daily [facility] Amlodipine Bes/Olmesartan Med (Jazmyne 5-20 Mg Tablet) 1 Each TABLET Amlodipine Bes/Olmesartan Med (Jazmyne 5-20 Mg Tablet) 1 Each TABLET 2020-03-23 0 00:00:00 No 1 Daily [facility] Ciprofloxacin Hcl (Cipro) 500 Mg TABLET Ciprofloxacin Hcl (C ipro) 500 Mg TABLET 2020-04-01 00:00:00 No 500 Every 12 Hours [facility] Aspirin (Asa) 81 Mg TAB Aspirin (Asa) 81 Mg TAB 2018-06-23 00:00 :00 No 81 Daily [facility] Alprazolam Alprazolam 2018-06-20 00:00:00 No 1 Qhs [facility] Omeprazole Omeprazole 2018-06-20 00:00:00 No 1 Katelynn ly [facility] Tramadol Hcl Tramadol Hcl 2018-06-20 00:00:00 No 1 As Needed [facility] Vital Signs Vital Name Observation Time Observation Value Comments Source Body Temperature 2020-04-02 16:02:00 97.8 [degF] [facility] Heart Rate 2020-04-02 16:02:00 73 /min [facility] Respiratory rate 2020-04-02 16:02:00 20 /min [facility] BP Systolic 2020-04-02 16:02:00 123 mm[Hg] [facility] BP Diastolic 2020-04-02 16:02:00 84 mm[Hg] [facility] Oxygen saturation by Pulse oximetry 2020-04-02 16:02:00 97 /min [facility] Weight 2020-04-01 23:40:00 256.04 [lb_av] [facility] BMI (Body Mass Index) 2020-04-01 23:40:00 32.9 kg/m2 [facility] Procedures This patient has no known procedures. Plan of Care Planned Activity Planned Date Details Comments Source Instructions Chest Pain - Noncardiac [facility] Encounters Start Date/Time End Date/Time Encounter Type Admission Type Attendi [facility] Facility Care Department Encounter ID Source 2018-06-21 14:42:00 2018-06-25 13:01:[address] [facility] [id number] [facility] Results Test Description Test Time Test Comments Results Result Comments Source Serum or plasma creatine kinase measurement (enzymatic activity/volume) 2020-04-02 11:55:00 Test Item Creatine Kinase (test code = 2157-6) 513 [IU]/L 30-200 [facility] creatine kinase MB measurement (mass/volume)2020-04-02 11:55:00* Test Item Value Reference Range Interpretation Comments Creatine Kinase MB (test code = 70669-5) 4.40 ng/mL 0-5.0 [facility] measurement by highly sensitive enzyme [id number] 11:55:00* Test Item Value Reference Range Interpretation Comments Troponin I (test code = 61049-1) 0.008 ng/mL 0-0.300 [facility] thyrotropin measurement by detection limit <= 0.005 miu/l (units/volume)2020-04-02 11:55:00* Test Item Value Reference Range Interpretation Comments Thyroid Stimulating Hormone (TSH) (test code = 45242-6) 1.255 0.350-4.940 [facility] leukocytes automated count (number/volume)2020-04-02 04:35:00* Test Item Value Reference Range Interpretation Comments White Blood Count (test code = 6690-2) 5.25 10*3/uL 4.8-10.8 [facility] erythrocytes automated count (number/volume)2020-04-02 04:35:00* Test Item Value Reference Range Interpretation Comments Red Blood Count (test code = 789-8) 6.28 10*6/mL 4.3-5.7 [facility] hemoglobin measurement (moles/volume)2020-04-02 04:35:00* Test Item Value Reference Range Interpretation Comments Hemoglobin (test code = 53213-5) 12.4 g/dL 14.0-18.0 [facility] blood hematocrit (volume fraction)2020-04-02 04:35:00* Test Item Value Reference Range Interpretation Comments Hematocrit (test code = 4544-3) 40.3 % 38.2-49.6 [facility] erythrocyte mean corpuscular [id number] 04:35:00* Test Item Value Reference Range Interpretation Comments Mean Corpuscular Volume (test code = 787-2) 64.2 81-99 [facility] erythrocyte mean corpuscular hemoglobin (mass per erythrocyte)2020-04-02 04:35:00* Test Item Value Reference Range Interpretation Comments Mean Corpuscular Hemoglobin (test code = 785-6) 19.7 pg 28-32 [facility] erythrocyte mean corpuscular hemoglobin concentration measurement (mass/volume)2020-04-02 04:35:00* Test Item Value Reference Range Interpretation Comments Mean Corpuscular Hemoglobin Concent (test code = 786-4) 30.8 g/dL 31-35 [facility] TexasRDW IliUm-[id number] 04:35:00* Test Item Value Reference Range Interpretation Comments Red Cell Distribution Width (test code = 47773-6) 20.2 % 11.7 -14.4 [facility] blood platelet count (count/volume)2020-04-02 04:35:00* Test Item Value Reference Range Interpretation Comments Platelet Count (test code = 777-3) 246 10*3/uL 140-360 [facility] segmented neutrophil count as percentage of total jakjirexmt6253-08-87 04:35:00* Test Item Value Reference Range Interpretation Comments Neutrophils (%) (Auto) (test code = 22306-3) 49.6 % 38.7-80.0 [facility] blood lymphocyte count as percentage ot total zvsvzdvvgv3679-12-39 04:35:00* Test Item Value Reference Range Interpretation Comments Lymphocytes (%) (Auto) (test code = 736-9) 36.6 % 18.0-39.1 [facility]Autom[facility] blood monocyte count as percentage of total zjsasosfrt6954-47-63 04:35:00* Test Item Value Reference Range Interpretation Comments Monocytes (%) (Auto) (test code = 5905-5) 9.0 % 4.4-11.3 [facility]Autom[facility] blood eosinophil count as percentage of total emgqovbqma1334-44-07 04:35:00* Test Item Value Reference Range Interpretation Comments Eosinophils (%) (Auto) (test code = 713-8) 3.8 % 0.0-6.0 [facility]Autom[facility] blood basophil count as percentage of total shmvjmthws2979-31-26 04:35:00* Test Item Value Reference Range Interpretation Comments Basophils (%) (Auto) (test code = 706-2) 0.6 % 0.0-1.0 [facility] TexasFluoroscopic procedure less than one hour qiwkstwd3793-33-38 04:35:00* Test Item Value Reference Range Interpretation Comments IM GRANULOCYTES % (test code = IM GRANULOCYTES %) 0.4 % 0.0- 1.0 [facility] blood neutrophil count 2020-04-02 04:35:00* Test Item Value Reference Range Interpretation Comments Neutrophils # (Auto) (test code = 751-8) 2.6 2.1-6.9 [facility] lymphocytes count (number/volume) 2020-04-02 04:35:00* Test Item Value Reference Range Interpretation Comments Lymphocytes # (Auto) (test code = 44815-9) 1.9 1.0-3.2 [facility] monocytes automated count (number/volume)2020-04-02 04:35:00* Test Item Value Reference Range Interpretation Comments Monocytes # (Auto) (test code = 742-7) 0.5 0.2-0.8 [facility]Autom[facility] blood eosinophil count 2020-04-02 04:35:00* Test Item Value Reference Range Interpretation Comments Eosinophils # (Auto) (test code = 711-2) 0.2 0.0-0.4 [facility]Automated blood basophil count (count/volume)2020-04-02 04:35:00* Test Item Value Reference Range Interpretation Comments Basophils # (Auto) (test code = 704-7) 0.0 0.0-0.1 [facility] TexasFluoroscopic procedure less than one hour [id number] 04:35:00* Test Item Value Reference Range Interpretation Comments Absolute Immature Granulocyte (auto (pedro luis t code = Absolute Immature Granulocyte (auto) 0.02 10*3/uL 0-0.1 [facility] sodium measurement (moles/volume)2020-04-02 04:35:00* Test Item Value Reference Range Interpretation Comments Sodium Level (test code = 2951-2) 140 mmol/L 136-145 [facility] potassium measurement (moles/volume)2020-04-02 04:35:00* Test Item Value Reference Range Interpretation Comments Potassium Level (test code = 2823-3) 3.8 mmol/L 3.5-5.1 [facility] chloride measurement (moles/volume)2020-04-02 04:35:00* Test Item Value Reference Range Interpretation Comments Chloride Level (test code = 2075-0) 107 mmol/L 98-107 [facility] plasma carbon dioxide, total measurement (moles/volume)2020-04-02 04:35:00* Test Item Value Reference Range Interpretation Comments Carbon Dioxide Level (test code = 2028-9) 27 mmol/L 22-29 [facility] plasma anion [id number] 04:35:00* Test Item Value Reference Range Interpretation Comments Anion Gap (test code = 94655-2) 9.8 mmol/L 8-16 [facility] urea nitrogen measurement (mass/volume)2020-04-02 04:35:00* Test Item Value Reference Range Interpretation Comments Blood Urea Nitrogen (test code = 3094-0) 18 mg/dL 7-26 [facility] creatinine measurement (mass/volume)2020-04-02 04:35:00* Test Item Value Reference Range Interpretation Comments Creatinine (test code = 2160-0) 0.79 mg/dL 0.72-1.25 [facility] or plasma urea nitrogen/creatinine mass [id number] 04:35:00* Test Item Value Reference Range Interpretation Comments BUN/Creatinine Ratio (test code = 3097-3) 23 6-25 [facility] TexasEstimated glomerular filtration rate (GFR) tzhqobsuffaqo7746-48-05 04:35:00* Test Item Value Reference Range Interpretation Comments Estimat Glomerular Filtration Rate (test code = 449165285) > 60 mL/ min >60 Ranges were taken from the National Kidney Disease Education Program and the [facility] [employer] literature.Reference ranges:60 or greater: Crwhcw04-76 ( for 3 consecutive months): Chronic kidney disease 15 or less: Kidney failureThe Medical Center of Southeast TexasGlucose iqibcuagaub2240-29-23 04:35:00* Test Item Value Reference Range Interpretation Comments Glucose Level (test code = KDN7809) 125 mg/dL 74-118 [facility] calcium measurement (mass/volume)2020-04-02 04:35:00* Test Item Value Reference Range Interpretation Comments Calcium Level (test code = 18391-1) 8.7 mg/dL 8.4-10.2 [facility] TexasFluoroscopic procedure less than one hour vaakpjat2484-82-95 04:35:00* Test Item Value Reference Range Interpretation Comments Hemoglobin A1c Percent (test code = Hemoglobin A1c Percent) 7.6 % 4.0-7.0 [facility] triglyceride measurement (mass/volume)2020-04-02 04:35:00* Test Item Value Reference Range Interpretation Comments Triglycerides Level (test code = 2571-8) 73 mg/dL 0-149 [facility] cholesterol measurement (mass/volume)2020-04-02 04:35:00* Test Item Value Reference Range Interpretation Comments Cholesterol Level (test code = 2093-3) 119 mg/dL 0-199 Less than 200 mg/dL Low Zedx377 - 239 mg/dL Borderline Oism178 m g/dl and greater High Risk [facility] cholesterol in LDL measurement (mass/volume) 2020-04-02 04:35:00* Test Item Value Reference Range Interpretation Comments LDL Cholesterol (test code = 2089-1) 64 mg/dL 60-130 [facility] cholesterol in HDL measurement (mass/volume)2020-04-02 04:35:00* Test Item Value Reference Range Interpretation Comments HDL Cholesterol (test code = 2085-9) 40 mg/dL 40-60 [facility] plasma total cholesterol/cholesterol in HDL mass xfdls6133-09-09 04:35:00* Test Item Value Reference Range Interpretation Comments Cholesterol/HDL Ratio (test code = 9830-1) 3.0 3.9-4.7 [facility] - [id number] 20:50:00 [facility] 1960 Sex: M [place] [id number] Patient Name: FILIBERTO MEHTA MR #: [id number] : 1960 Age/Sex: 59/M Req #: [id number] [facility] Physician: KIMBERLEY MORATAYA MD Ordered by: IDA DELONG MD Report #: [id number] Location: MED/SURG Room/Bed: [facility] Procedure: [id number] HOPD/CXR 2 VIEW - HOPD Exam Date: 04/01/20 Exam Time: 2018 REPORT STATUS: Signed EXAMINATION: CXR 2 VIEW - HOPD INDICATION: Chest pain. COMPARISON: None FINDINGS: T UBES and LINES: None. LUNGS: Lungs are well inflated. Lungs are clear. There is no evidence of pneumonia or pulmonary edema. PLEURA: No pleura l effusion or pneumothorax. HEART AND MEDIASTINUM: The cardiomediastinal s ilhouette is unremarkable. BONES AND SOFT TISSUES: No acute osseous le sotero. Soft tissues are unremarkable. UPPER ABDOMEN: No free air under th e diaphragm. IMPRESSION: No acute thoracic abnormality. Sign ed by: Dr. Debbie Mooney M.D. on 04/01/2020 8:51 PM Dictated By: NATE MOONEY MD, MD 50 Transcribed By: FRANCISCO JAVIER on 04/01/202050 COPY TO: IDA DELONG MD CT BRAIN [id number] 20:42:00 [facility] 1960 Sex: M [place] [address] Patient Name: FILIBERTO MEHTA MR #: [id number] : 1960 Age/Sex: 59/M Req #: [id number] Adm Physician: KIMBERLEY MORATAYA MD Ordered by: IDA DELONG MD Report #: [id number] Location: MED/SURG Room/Bed: [facility] Procedure: [id number] HOPD/CT BRAIN WO-HOPD Exam Date: 04/01/20 Exam Time: 2024 REPORT STATUS: Signed EXAMINATION: Head CT HISTO RY: 59-year-old male with dizziness for the last 2 days. COMPARISON: None. T ECHNIQUE: Helical axial images of the head were obtained. Reformatted coronal and sagittal images from the axial data. Dose modulation, iterative reconstr uction, and/or weight based adjustment of the mA/kV was utilized to reduce the radiation dose to as low as reasonably achievable. FINDINGS: Par enchyma: 1. No abnormal densities. 2. No mass or hemorrhage. No CT eviden ce of acute territorial vascular insult. Extra-axial spaces:No abnormal density. No extra-axial fluid collections Brain volume: Normal for age. Ventricles: No hydrocephalus or displacement. Arteries : No density suggestive of thrombus. Dural sinuses: No abnormal density. Foramen magnum: No mass, Chiari malformation, or basilar invagination. Sella: No obvious mass. Paranasal/mastoid sinuses: Opacificatio n of the left frontal sinus. Otherwise the paranasal sinuses are clear. Skull/Scalp: No lytic or blastic lesions. No fractures. IMPRESSION: No intracranial abnormalities. Signed by: Dr. Nhung Yanes M.D. on 2019 8:44 PM Dictated By: NHUNG YANES MD 43 Transcribed By: FRANCISCO JAVIER on 04/01/202043 COPY TO: IDA DELONG MD [id number] 15:14:00* Test Item Value Reference Range Interpretation Comments TROPONIN-I (test code = TROPI) <0.015 ng/mL 0.00-0.056 N CBC W/AUTO [id number] 13:12:00* Test Item Value Reference Range Interpretation Comments WHITE BLOOD CELL (test code = WBC) 6.0 K/mm3 4.5-12.5 N RED BLOOD CELL (test code = RBC) 6.92 mill/mm3 4.0-5.8 H HEMOGLOBIN (test code = HGB) 13.8 gram/dL 13.0-17.5 N HEMATOCRIT (test code = HCT) 44.5 % 42.0-52.0 N MEAN CELL VOLUME (test code = MCV) 64.3 fL 80-98 L MEAN CELL HGB (test code = MCH) 19.9 picogram 27.0-33.0 L MEAN CELL HGB CONCETRATION (test code = MCHC) 31.0 gram/dL 33.0-36. 0 L RED CELL DISTRIBUTION WIDTH (test code = RDW) 19.2 % 11.6-16. 2 H RED CELL DISTRIBUTION WIDTH SD (test code = RDW-SD) 39.8 fL 37 .0-51.0 N PLATELET COUNT (test code = PLT) 254 K/mm3 150-450 N NEUTROPHIL % (test code = NT%) 60.4 % 39.0-69.0 N LYMPHOCYTE % (test code = LY%) 30.0 % 25.0-55.0 N MONOCYTE % (test code = MO%) 6.5 % 0.0-10.0 N EOSINOPHIL % (test code = EO%) 2.5 % 0.0-5.0 N BASOPHIL % (test code = BA%) 0.3 % 0.0-1.0 N NEUTROPHIL # (test code = NT#) 3.63 K/mm3 1.8-7.7 N LYMPHOCYTE # (test code = LY#) 1.80 K/mm3 1.0-5.0 N MONOCYTE # (test code = MO#) 0.39 K/mm3 0-0.8 N EOSINOPHIL # (test code = EO#) 0.15 K/mm3 0.0-0.5 N BASOPHIL # (test code = BA#) 0.02 K/mm3 0.0-0.2 N MANUAL DIFF REQUIRED (test code = MDIFF) NO, ONLY SCAN NEEDED DIFFERENTIAL [id number] 13:12:00* Test Item Value Reference Range Interpretation Comments STAIN ACCEPTABILITY (test code = STN ACCEPTABLE) STAIN ACCEPTABLE POIKILOCYTOSIS (test code = POIK) 1+ IRWIN CELLS (test code = IRWIN) 1+ NONE PLATELET ESTIMATE (test code = PLTEST) ADEQUATE PLATELET MORPHOLOGY (test code = PLTMORPH) NORMAL - XR CHEST 2 [id number] 12:55:00 Name: FILIBERTO MEHTA Imaging [facility] : 1960 Age/S:58 /M [address] [facility] Unit#:[id number] Loc: [place] [address] Phys: Lida Gutierrez NP Dis Date: PHONE #: [phone] Status: REG ER FAX #: [phone] Exam Date: 03/26/2019 Reason: cp EXAMS: CPT CODE: [id number] XR CHEST 2 V 00153 REASON FOR EXAM: cp Exam Order Date: 03/26/2019 11:52 AM Ordering M.Alex.: Lida Gutierrez NP PROCEDURE: - XR CHEST 2 V COMPARISON: None FINDINGS: The lungs are clear. There is no pleural effusion or pneumothorax. Pulmonary vascularity is within normal limits. Cardiomediastinal silhouette is normal in size for technique. The mediastinal contours are within normal limits. There appears to b een prior resorption of the left clavicular head which may be sequela of r emote trauma or infection. The visualized upper abdomen is within normal limits. IMPRESSION: No acute cardiopulmon hector process. Location: [facility] at 1255 Reported and sign ed by: Jameel Cisneros MD CC: Technologist: Chrissie Cyr Trnscrpt Data: 03/26/2019 (3624) t.[id number] Orig Print D/T: S: 03/26/2019 (8189) PAGE 1 Signed Report BASIC METABOLIC [id number] 12:25:00* Test Item Value Reference Range Interpretation Comments SODIUM (test code = NA) 141 mmol/L 136-145 N POTASSIUM (test code = K) 3.7 mmol/L 3.5-5.1 N CHLORIDE (test code = CL) 102 mmol/L 101-109 N CARBON DIOXIDE (test code = CO2) 28.4 mmol/L 21-32 N ANION GAP (test code = GAP) 14 mmol/L 10-20 N GLUCOSE (test code = GLU) 171 mg/dL 74-106 H BLOOD UREA NITROGEN (test code = BUN) 18 mg/dL 3-21 N GLOMERULAR FILTRATION RATE (test code = GFR) > 60 mL/min >=60 Estimated GFR by using Modified MDRD formula.Chronic kidney disease is defined as either kidney damageor GFR <60 mL/min/1.73 m2 for >3 months. CREATININE (test code = CREAT) 0.83 mg/dL 0.55-1.3 N BUN/CREATININE RATIO (test code = BUN/CREA) 21.7 10-20 H CALCIUM (test code = CA) 8.8 mg/dL 8.4-10.2 N [id number] 12:25:00* Test Item Value Reference Range Interpretation Comments TROPONIN-I (test code = TROPI) <0.015 ng/mL 0.00-0.056 N BASIC METABOLIC [id number] 12:15:00* Test Item Value Reference Range Interpretation Comments SODIUM (test code = NA) 141 mmol/L 136-145 N POTASSIUM (test code = K) 3.7 mmol/L 3.5-5.1 N CHLORIDE (test code = CL) 102 mmol/L 101-109 N CARBON DIOXIDE (test code = CO2) 28.4 mmol/L 21-32 N ANION GAP (test code = GAP) 14 mmol/L 10-20 N GLUCOSE (test code = GLU) 171 mg/dL 74-106 H BLOOD UREA NITROGEN (test code = BUN) 18 mg/dL 3-21 N GLOMERULAR FILTRATION RATE (test code = GFR) > 60 mL/min >=60 Estimated GFR by using Modified MDRD formula.Chronic kidney disease is defined as either kidney damageor GFR <60 mL/min/1.73 m2 for >3 months. CREATININE (test code = CREAT) 0.83 mg/dL 0.55-1.3 N BUN/CREATININE RATIO (test code = BUN/CREA) 21.7 10-20 H CALCIUM (test code = CA) 8.8 mg/dL 8.4-10.2 N [id number] 12:15:00* Test Item Value Reference Range Interpretation Comments TROPONIN-I (test code = TROPI) ng/mL 0-0.045 CBC W/AUTO [id number] 12:12:00* Test Item Value Reference Range Interpretation Comments WHITE BLOOD CELL (test code = WBC) 6.0 K/mm3 4.5-12.5 N RED BLOOD CELL (test code = RBC) 6.92 mill/mm3 4.0-5.8 H HEMOGLOBIN (test code = HGB) 13.8 gram/dL 13.0-17.5 N HEMATOCRIT (test code = HCT) 44.5 % 42.0-52.0 N MEAN CELL VOLUME (test code = MCV) 64.3 fL 80-98 L MEAN CELL HGB (test code = MCH) 19.9 picogram 27.0-33.0 L MEAN CELL HGB CONCETRATION (test code = MCHC) 31.0 gram/dL 33.0-36. 0 L RED CELL DISTRIBUTION WIDTH (test code = RDW) 19.2 % 11.6-16. 2 H RED CELL DISTRIBUTION WIDTH SD (test code = RDW-SD) 39.8 fL 37 .0-51.0 N PLATELET COUNT (test code = PLT) 254 K/mm3 150-450 N NEUTROPHIL % (test code = NT%) 60.4 % 39.0-69.0 N LYMPHOCYTE % (test code = LY%) 30.0 % 25.0-55.0 N MONOCYTE % (test code = MO%) 6.5 % 0.0-10.0 N EOSINOPHIL % (test code = EO%) 2.5 % 0.0-5.0 N BASOPHIL % (test code = BA%) 0.3 % 0.0-1.0 N NEUTROPHIL # (test code = NT#) 3.63 K/mm3 1.8-7.7 N LYMPHOCYTE # (test code = LY#) 1.80 K/mm3 1.0-5.0 N MONOCYTE # (test code = MO#) 0.39 K/mm3 0-0.8 N EOSINOPHIL # (test code = EO#) 0.15 K/mm3 0.0-0.5 N BASOPHIL # (test code = BA#) 0.02 K/mm3 0.0-0.2 N MANUAL DIFF REQUIRED (test code = MDIFF) NO, ONLY SCAN NEEDED DIFFERENTIAL [id number] 12:12:00* Test Item Value Reference Range Interpretation Comments STAIN ACCEPTABILITY (test code = STN ACCEPTABLE) MORPHOLOGY COMMENT (test code = MOC) PLATELET ESTIMATE (test code = PLTEST) PLATELET MORPHOLOGY (test code = PLTMORPH) CBC W/AUTO [id number] 12:11:00* Test Item Value Reference Range Interpretation Comments WHITE BLOOD CELL (test code = WBC) 6.0 K/mm3 4.5-12.5 N RED BLOOD CELL (test code = RBC) 6.92 mill/mm3 4.0-5.8 H HEMOGLOBIN (test code = HGB) 13.8 gram/dL 13.0-17.5 N HEMATOCRIT (test code = HCT) 44.5 % 42.0-52.0 N MEAN CELL VOLUME (test code = MCV) 64.3 fL 80-98 L MEAN CELL HGB (test code = MCH) 19.9 picogram 27.0-33.0 L MEAN CELL HGB CONCETRATION (test code = MCHC) 31.0 gram/dL 33.0-36. 0 L RED CELL DISTRIBUTION WIDTH (test code = RDW) 19.2 % 11.6-16. 2 H RED CELL DISTRIBUTION WIDTH SD (test code = RDW-SD) 39.8 fL 37 .0-51.0 N PLATELET COUNT (test code = PLT) 254 K/mm3 150-450 N NEUTROPHIL % (test code = NT%) 60.4 % 39.0-69.0 N LYMPHOCYTE % (test code = LY%) 30.0 % 25.0-55.0 N MONOCYTE % (test code = MO%) 6.5 % 0.0-10.0 N EOSINOPHIL % (test code = EO%) 2.5 % 0.0-5.0 N BASOPHIL % (test code = BA%) 0.3 % 0.0-1.0 N NEUTROPHIL # (test code = NT#) 3.63 K/mm3 1.8-7.7 N LYMPHOCYTE # (test code = LY#) 1.80 K/mm3 1.0-5.0 N MONOCYTE # (test code = MO#) 0.39 K/mm3 0-0.8 N EOSINOPHIL # (test code = EO#) 0.15 K/mm3 0.0-0.5 N BASOPHIL # (test code = BA#) 0.02 K/mm3 0.0-0.2 N MANUAL DIFF REQUIRED (test code = MDIFF) NO, ONLY SCAN NEEDED DIFFERENTIAL [id number] 12:11:00* Test Item Value Reference Range Interpretation Comments STAIN ACCEPTABILITY (test code = STN ACCEPTABLE) CABOT RINGS (test code = CAB) MORPHOLOGY COMMENT (test code = MOC) PLATELET ESTIMATE (test code = PLTEST) PLATELET MORPHOLOGY (test code = PLTMORPH) CBC W/AUTO [id number] 12:11:00* Test Item Value Reference Range Interpretation Comments WHITE BLOOD CELL (test code = WBC) 6.0 K/mm3 4.5-12.5 N RED BLOOD CELL (test code = RBC) 6.92 mill/mm3 4.0-5.8 H HEMOGLOBIN (test code = HGB) 13.8 gram/dL 13.0-17.5 N HEMATOCRIT (test code = HCT) 44.5 % 42.0-52.0 N MEAN CELL VOLUME (test code = MCV) 64.3 fL 80-98 L MEAN CELL HGB (test code = MCH) 19.9 picogram 27.0-33.0 L MEAN CELL HGB CONCETRATION (test code = MCHC) 31.0 gram/dL 33.0-36. 0 L RED CELL DISTRIBUTION WIDTH (test code = RDW) 19.2 % 11.6-16. 2 H RED CELL DISTRIBUTION WIDTH SD (test code = RDW-SD) 39.8 fL 37 .0-51.0 N PLATELET COUNT (test code = PLT) 254 K/mm3 150-450 N NEUTROPHIL % (test code = NT%) 60.4 % 39.0-69.0 N LYMPHOCYTE % (test code = LY%) 30.0 % 25.0-55.0 N MONOCYTE % (test code = MO%) 6.5 % 0.0-10.0 N EOSINOPHIL % (test code = EO%) 2.5 % 0.0-5.0 N BASOPHIL % (test code = BA%) 0.3 % 0.0-1.0 N NEUTROPHIL # (test code = NT#) 3.63 K/mm3 1.8-7.7 N LYMPHOCYTE # (test code = LY#) 1.80 K/mm3 1.0-5.0 N MONOCYTE # (test code = MO#) 0.39 K/mm3 0-0.8 N EOSINOPHIL # (test code = EO#) 0.15 K/mm3 0.0-0.5 N BASOPHIL # (test code = BA#) 0.02 K/mm3 0.0-0.2 N MANUAL DIFF REQUIRED (test code = MDIFF) NO, ONLY SCAN NEEDED DIFFERENTIAL [id number] 12:11:00* Test Item Value Reference Range Interpretation Comments STAIN ACCEPTABILITY (test code = STN ACCEPTABLE) MORPHOLOGY COMMENT (test code = MOC) PLATELET ESTIMATE (test code = PLTEST) PLATELET MORPHOLOGY (test code = PLTMORPH) CBC W/AUTO [id number] 12:11:00* Test Item Value Reference Range Interpretation Comments WHITE BLOOD CELL (test code = WBC) 6.0 K/mm3 4.5-12.5 N RED BLOOD CELL (test code = RBC) 6.92 mill/mm3 4.0-5.8 H HEMOGLOBIN (test code = HGB) 13.8 gram/dL 13.0-17.5 N HEMATOCRIT (test code = HCT) 44.5 % 42.0-52.0 N MEAN CELL VOLUME (test code = MCV) 64.3 fL 80-98 L MEAN CELL HGB (test code = MCH) 19.9 picogram 27.0-33.0 L MEAN CELL HGB CONCETRATION (test code = MCHC) 31.0 gram/dL 33.0-36. 0 L RED CELL DISTRIBUTION WIDTH (test code = RDW) 19.2 % 11.6-16. 2 H RED CELL DISTRIBUTION WIDTH SD (test code = RDW-SD) 39.8 fL 37 .0-51.0 N PLATELET COUNT (test code = PLT) 254 K/mm3 150-450 N NEUTROPHIL % (test code = NT%) 60.4 % 39.0-69.0 N LYMPHOCYTE % (test code = LY%) 30.0 % 25.0-55.0 N MONOCYTE % (test code = MO%) 6.5 % 0.0-10.0 N EOSINOPHIL % (test code = EO%) 2.5 % 0.0-5.0 N BASOPHIL % (test code = BA%) 0.3 % 0.0-1.0 N NEUTROPHIL # (test code = NT#) 3.63 K/mm3 1.8-7.7 N LYMPHOCYTE # (test code = LY#) 1.80 K/mm3 1.0-5.0 N MONOCYTE # (test code = MO#) 0.39 K/mm3 0-0.8 N EOSINOPHIL # (test code = EO#) 0.15 K/mm3 0.0-0.5 N BASOPHIL # (test code = BA#) 0.02 K/mm3 0.0-0.2 N MANUAL DIFF REQUIRED (test code = MDIFF) NO, ONLY SCAN NEEDED DIFFERENTIAL [id number] 12:11:00* Test Item Value Reference Range Interpretation Comments STAIN ACCEPTABILITY (test code = STN ACCEPTABLE) CABOT RINGS (test code = CAB) MORPHOLOGY COMMENT (test code = MOC) PLATELET ESTIMATE (test code = PLTEST) PLATELET MORPHOLOGY (test code = PLTMORPH) Bedside [id number] 12:19:00* Test Item Value Reference Range Interpretation Comments Bedside Glucose (test code = 15480-5) 155 70-120 H Meter ID: [id number]viewodium Level 2018-06-25 06:30:00* Test Item Value Reference Range Interpretation Comments Sodium Level (test code = 2951-2) 140 136-145 [facility] [id number] 06:30:00* Test Item Value Reference Range Interpretation Comments Potassium Level (test code = 2823-3) 4.3 3.5-5.1 [facility] [place]Chloride [id number] 06:30:00* Test Item Value Reference Range Interpretation Comments Chloride Level (test code = 2075-0) 105 98-107 [facility] TexasCarbon Dioxide [id number] 06:30:00* Test Item Value Reference Range Interpretation Comments Carbon Dioxide Level (test code = 2028-9) 24 22-29 [facility] TexasAnion [id number] 06:30:00* Test Item Value Reference Range Interpretation Comments Anion Gap (test code = 50137-2) 15.3 8-16 [facility] TexasBlood Urea [id number] 06:30:00* Test Item Value Reference Range Interpretation Comments Blood Urea Nitrogen (test code = 3094-0) 16 7-26 [facility] TexasCreatinine2019-02-03 06:30:00* Test Item Value Reference Range Interpretation Comments Creatinine (test code = 2160-0) 0.86 0.72-1.25 [facility]BUN/Creatinine [id number] 06:30:00* Test Item Value Reference Range Interpretation Comments BUN/Creatinine Ratio (test code = 3097-3) 19 6-25 [facility] TexasEstimat Glomerular Filtration Rate 2018-06-25 06:30:00* Test Item Value Reference Range Interpretation Comments Estimat Glomerular Filtration Rate (test code = 579725272) > 60 >60 Ranges were taken from the National Kidney Disease Education Program and the [facility] Foundation literature.Reference ranges:60 or greater: Mfxcru30-42 ( for 3 consecutive months): Chronic kidney disease 15 or less: Kidney failureThe [facility] Center of Southeast TexasGlucose [id number] 06:30:00* Test Item Value Reference Range Interpretation Comments Glucose Level (test code = REC9319) 178 74-118 H [facility] TexasCalcium [id number] 06:30:00* Test Item Value Reference Range Interpretation Comments Calcium Level (test code = 36696-0) 8.9 8.4-10.2 [facility] TexasWhite Blood [id number] 06:10:00* Test Item Value Reference Range Interpretation Comments White Blood Count (test code = 6690-2) 6.35 4.8-10.8 [facility] TexasRed Blood [id number] 06:10:00* Test Item Value Reference Range Interpretation Comments Red Blood Count (test code = 789-8) 5.96 4.3-5.7 H [facility] TexasHemoglobin2019-02-03 06:10:00* Test Item Value Reference Range Interpretation Comments Hemoglobin (test code = 19664-0) 12.3 14.0-18.0 L [facility] TexasHematocrit2019-02-03 06:10:00* Test Item Value Reference Range Interpretation Comments Hematocrit (test code = 4544-3) 37.0 38.2-49.6 L [facility] TexasMean Corpuscular [id number] 06:10:00* Test Item Value Reference Range Interpretation Comments Mean Corpuscular Volume (test code = 787-2) 62.1 81-99 L [facility] TexasMean Corpuscular Wmprtsrwzf6158-16-95 06:10:00* Test Item Value Reference Range Interpretation Comments Mean Corpuscular Hemoglobin (test code = 785-6) 20.6 28-32 L [facility] TexasMean Corpuscular Hemoglobin Concent 2018-06-25 06:10:00* Test Item Value Reference Range Interpretation Comments Mean Corpuscular Hemoglobin Concent (test code = 786-4) 33.2 31-35 [facility] TexasRed Cell Distribution [id number] 06:10:00* Test Item Value Reference Range Interpretation Comments Red Cell Distribution Width (test code = 26649-8) 19.9 11.7 -14.4 H [facility] TexasPlatelet [id number] 06:10:00* Test Item Value Reference Range Interpretation Comments Platelet Count (test code = 777-3) 205 140-360 [facility] TexasNeutrophils (%) (Auto)2018-06-25 06:10:00 * Test Item Value Reference Range Interpretation Comments Neutrophils (%) (Auto) (test code = 02254-6) 54.2 38.7-80.0 [facility] TexasLymphocytes (%) (Auto)2018-06-25 06:10:00 * Test Item Value Reference Range Interpretation Comments Lymphocytes (%) (Auto) (test code = 736-9) 34.6 18.0-39.1 [facility] TexasMonocytes (%) (Auto)2018-06-25 06:10:00* Test Item Value Reference Range Interpretation Comments Monocytes (%) (Auto) (test code = 5905-5) 7.9 4.4-11.3 [facility] TexasEosinophils (%) (Auto)2018-06-25 06:10:00 * Test Item Value Reference Range Interpretation Comments Eosinophils (%) (Auto) (test code = 713-8) 2.5 0.0-6.0 [facility] [place]Basophils (%) (Auto)2018-06-25 06:10:00* Test Item Value Reference Range Interpretation Comments Basophils (%) (Auto) (test code = 706-2) 0.5 0.0-1.0 [facility] TexasIM GRANULOCYTES %2018-06-25 06:10:00* Test Item Value Reference Range Interpretation Comments IM GRANULOCYTES % (test code = IM GRANULOCYTES %) 0.3 0.0- 1.0 [facility] TexasNeutrophils # (Auto)2018-06-25 06:10:00* Test Item Value Reference Range Interpretation Comments Neutrophils # (Auto) (test code = 751-8) 3.4 2.1-6.9 [facility] TexasLymphocytes # (Auto)2018-06-25 06:10:00* Test Item Value Reference Range Interpretation Comments Lymphocytes # (Auto) (test code = 34356-1) 2.2 1.0-3.2 [facility] TexasMonocytes # (Auto)2018-06-25 06:10:00* Test Item Value Reference Range Interpretation Comments Monocytes # (Auto) (test code = 742-7) 0.5 0.2-0.8 [facility] TexasEosinophils # (Auto)2018-06-25 06:10:00* Test Item Value Reference Range Interpretation Comments Eosinophils # (Auto) (test code = 711-2) 0.2 0.0-0.4 [facility] [place]Basophils # (Auto)2018-06-25 06:10:00* Test Item Value Reference Range Interpretation Comments Basophils # (Auto) (test code = 704-7) 0.0 0.0-0.1 [facility] TexasAbsolute Immature Granulocyte (auto 2018-06-25 06:10:00* Test Item Value Reference Range Interpretation Comments Absolute Immature Granulocyte (auto (pedro luis t code = Absolute Immature Granulocyte (auto) 0.02 0-0.1 [facility] TexasPlatelet [id number] 08:47:00* Test Item Value Reference Range Interpretation Comments Platelet Estimate (test code = 31289-6) ADEQUATE [facility] TexasPlatelet Morphology [id number] 08:47:00* Test Item Value Reference Range Interpretation Comments Platelet Morphology Comment (test code = 12874-6) FEW LARGE [facility] TexasAnisocytosis2019-02-01 08:47:00* Test Item Value Reference Range Interpretation Comments Anisocytosis (test code = 702-1) SLIGHT [facility] [place]How[place] Sfowsw1458-33-26 08:47:00* Test Item Value Reference Range Interpretation Comments [place] Bodies (test code = 7793-3) FEW [facility] TexasElliptocytes2019-02-01 08:47:00* Test Item Value Reference Range Interpretation Comments Elliptocytes (test code = 03620-7) SLIGHT [facility] TexasRed Cell Morphology [id number] 08:47:00* Test Item Value Reference Range Interpretation Comments Red Cell Morphology Comment (test code = 6742-1) ABNORMAL [facility]
== END 2020-04-14 15:39 | disposition home or self-care (01) ==
LOC: FSED 15:10
DX: R07.9 Chest pain, unspecified (principal); R42 Dizziness and giddiness; I10 Essential (primary) hypertension; E11.9 Type 2 diabetes mellitus without complications; E78.5 Hyperlipidemia, unspecified; I25.10 Atherosclerotic heart disease of native coronary artery without angina pectoris
CPT/HCPCS: 93005; 99283